=== PATIENT | male | born 1985 | race Caucasian/White ===

== ENCOUNTER 2019-01-06 14:18 | Observation (INO) | payer BC ==
[~2019-01-06] VITALS: Ht 172.7 cm; Wt 100.0 kg
[2019-01-06] MEDS ORDERED: LISINOPRIL10 MG PO (14:36)
[2019-01-06 15:00] VITALS: BP 134/69
--- NOTE | 2019-01-06 17:32 | NUR ---
PT STABLE, CALL LIGHT WITHIN REACH, MOTHER AT BEDSIDE, WILL CONTINUE TO MONITOR.
[2019-01-06 18:00] VITALS: BP 116/74
[2019-01-06 19:00] VITALS: BP 124/63
[2019-01-06 19:30] LABS: BASOPHILS 0.3 % (0-2); EOSINOPHILS 0.3 % (0-7); HEMATOCRIT 42.8 % (42.0-54.0); HEMOGLOBIN 14.6 g/dL (13.5-17.5); IMMATURE GRANULOCYTES 0.4 % (0-5); LYMPHOCYTES 14.7 % (15-50); MCH 29.1 pg (26.0-34.0); MCHC 34.1 g/dL (31.0-37.0); MCV 85.4 fL (80.0-100.0); MEAN PLATELET VOLUME 9.5 fL (7.4-10.4); MONOCYTES 8.7 % (2-11); NEUTROPHILS 75.6 % (40-80); RBC 5.01 10x6/uL (4.20-6.10); RDW 13.4 % (11.5-14.5); WBC 18.2 10x3/uL (4.8-10.8)
[2019-01-06 19:32] LABS: PLATELET COUNT 301 10x3/uL (130-400)
[2019-01-06 19:55] LABS: ALBUMIN 3.7 g/dL (3.4-5.0); ALKALINE PHOSPHATASE 78 U/L (46-116); ALT (SGPT) 35 U/L (10-68); BILIRUBIN - TOTAL 0.58 mg/dL (0.2-1.3); CALC OSMOLALITY 270 mosm/kg (275-300); CALCIUM 8.5 mg/dL (8.5-10.1); CARBON DIOXIDE 27.8 mmol/L (21.0-32.0); CHLORIDE - SERUM 100 mmol/L (98-107); CREATININE - SERUM 0.8 mg/dL (0.6-1.3); GLUCOSE 106 mg/dL (74-106); POTASSIUM - SERUM 4.2 mmol/L (3.5-5.1); PROTEIN - SERUM 7.8 g/dL (6.4-8.2); SODIUM 135 mmol/L (136-145); UREA NITROGEN 15 mg/dL (7-18); eGFR NON AFRICAN AMERICAN > 90 mL/min (90-120)
[2019-01-06 20:00] VITALS: BP 122/71
--- NOTE | 2019-01-06 20:40 | NUR ---
URINE SENT TO LAB
--- NOTE | 2019-01-06 21:00 | NUR ---
PT ARRIVED TO THE FLOOR. ALERT AND ORIENTED. NO SIGNS OF DISTRESS. BREAHING EVEN AND UNLABORED. WILL CONTINUE PLAN OF CARE.
[2019-01-06 22:41] VITALS: BP 136/77; Ht 172.7 cm; Wt 100.0 kg
[2019-01-07] VITALS: BP 136/77
[2019-01-07 04:00] VITALS: BP 121/80
[2019-01-07 07:52] LABS: CALC OSMOLALITY 272 mosm/kg (275-300); CALCIUM 8.3 mg/dL (8.5-10.1); CARBON DIOXIDE 26.9 mmol/L (21.0-32.0); CHLORIDE - SERUM 100 mmol/L (98-107); CREATININE - SERUM 0.8 mg/dL (0.6-1.3); GLUCOSE 96 mg/dL (74-106); SODIUM 136 mmol/L (136-145); UREA NITROGEN 16 mg/dL (7-18); eGFR NON AFRICAN AMERICAN > 90 mL/min (90-120)
[2019-01-07 08:28] LABS: BASOPHILS 0.2 % (0-2); EOSINOPHILS 0.5 % (0-7); HEMOGLOBIN 14.3 g/dL (13.5-17.5); IMMATURE GRANULOCYTES 0.5 % (0-5); LYMPHOCYTES 17.2 % (15-50); MCH 29.5 pg (26.0-34.0); MCV 86.6 fL (80.0-100.0); MEAN PLATELET VOLUME 9.7 fL (7.4-10.4); NEUTROPHILS 71.6 % (40-80); PLATELET COUNT 290 10x3/uL (130-400); RBC 4.85 10x6/uL (4.20-6.10); RDW 13.5 % (11.5-14.5); WBC 13.9 10x3/uL (4.8-10.8)
[2019-01-07 09:50] VITALS: BP 119/74
--- NOTE | 2019-01-07 10:00 | NUR ---
PT ALERT AND ORIENTED AND COMPLAINS OF BACK SPASMS AT TIMES. IVF INFUSING AT PRESCRIBED RATE WITH GUM MIXER MORPHINE. ZOFRAN FIVEN FOR NAUSEA.DR. DEXTER NOTFIED WITH NEW ORDERS NOTED. ENCOURAGED TO USE CALL LIGHT FOR ASSIST.
[2019-01-07 14:16] VITALS: BP 130/84
[2019-01-07 17:19] VITALS: BP 129/81
--- NOTE | 2019-01-07 20:00 | NUR ---
PT ALERT AND ORIENTED WHEN ENTERING ROOM. AND BABY AT BEDSIDE. PT HAS MORPHINE SEROLOGY TEACHER AT 10/13/09 INFUSING TO THE LEFT FOREARM. COMPLAINS THAT HE HAS BACK PAIN. ALSO STATES HE HASNT HAD A BOWEL MOVEMENT. SUPPLIED PATIENT WITH SPRITE AND PRUNE JUICE. CALL LIGHT IN REACH.
[2019-01-07 20:32] VITALS: BP 142/74
[2019-01-07 23:36] LABS: APPEARANCE CLEAR (CLEAR); BILIRUBIN NEGATIVE (NEGATIVE); COLOR YELLOW (YELLOW); GLUCOSE NEGATIVE (NEGATIVE); KETONE NEGATIVE (NEGATIVE); NITRITE NEGATIVE (NEGATIVE); PROTEIN NEGATIVE (NEGATIVE); SPECIFIC GRAVITY 1.015 (1.005-1.020); UROBILINOGEN NORMAL (NORMAL)
[2019-01-08 01:01] VITALS: BP 120/78
--- NOTE | 2019-01-08 01:24 | NUR ---
ASSISTED PT TO THE BATHROOM PER REQUEST. PT STATES THAT HE FEELS THE NEED TO HAVE A BM.
--- NOTE | 2019-01-08 04:06 | NUR ---
I have reviewed this patient and I concur with the Shift Assessment completed by the Licensed Practical Nurse today this shift.
[2019-01-08 07:18] LABS: BASOPHILS 0.1 % (0-2); EOSINOPHILS 0.1 % (0-7); HEMATOCRIT 41.7 % (42.0-54.0); HEMOGLOBIN 14.2 g/dL (13.5-17.5); IMMATURE GRANULOCYTES 0.5 % (0-5); LYMPHOCYTES 10.5 % (15-50); MCH 29.2 pg (26.0-34.0); MCHC 34.1 g/dL (31.0-37.0); MCV 85.8 fL (80.0-100.0); MONOCYTES 4.2 % (2-11); NEUTROPHILS 84.6 % (40-80); PLATELET COUNT 298 10x3/uL (130-400); RBC 4.86 10x6/uL (4.20-6.10); RDW 13.2 % (11.5-14.5)
[2019-01-08 07:42] LABS: ALBUMIN 3.5 g/dL (3.4-5.0); ALKALINE PHOSPHATASE 73 U/L (46-116); ALT (SGPT) 27 U/L (10-68); BILIRUBIN - TOTAL 0.73 mg/dL (0.2-1.3); CALC OSMOLALITY 266 mosm/kg (275-300); CALCIUM 8.9 mg/dL (8.5-10.1); CARBON DIOXIDE 24.8 mmol/L (21.0-32.0); CHLORIDE - SERUM 99 mmol/L (98-107); CREATININE - SERUM 0.6 mg/dL (0.6-1.3); GLUCOSE 126 mg/dL (74-106); POTASSIUM - SERUM 4.5 mmol/L (3.5-5.1); PROTEIN - SERUM 7.9 g/dL (6.4-8.2); SODIUM 133 mmol/L (136-145); eGFR NON AFRICAN AMERICAN > 90 mL/min (90-120)
[2019-01-08 07:49] LABS: UREA NITROGEN 11 mg/dL (7-18)
[2019-01-08 10:12] VITALS: BP 120/69
--- NOTE | 2019-01-08 11:03 | NUR ---
DECREASED PAIN NOTED TODAY WITH INCREASED ROM. IVF AND SCABBLER AT PRESECRIBED RATE WITH NO S/S OF INFECTION/INFILTRATION. INCREASED STABILITY WITH AMBULATION NOTED. DENIES ANY PAIN OR DISCOMFORT AT THIS TIME. ENCOURAED TO USE CALL LIGHT FOR ASSIST.
[2019-01-08 14:37] VITALS: BP 114/62
[2019-01-08 18:17] VITALS: BP 104/59
[2019-01-08 20:00] VITALS: BP 123/65
[2019-01-09] VITALS (7 sets, daily range): BP systolic 117–125; BP diastolic 64–82
--- NOTE | 2019-01-09 03:45 | NUR ---
I have reviewed this patient and I concur with the Shift Assessment completed by the Licensed Practical Nurse today this shift.
--- NOTE | 2019-01-09 04:00 | NUR ---
AMBULATES INDEPENDENTLY. DENIES PAIN AT THIS TIME. STATES DECADRON HAS DRASTICALLY IMPROVED PAIN LEVEL. WILL CONTINUE TO MONITOR.
[2019-01-09 08:02] LABS: BASOPHILS 0.1 % (0-2); EOSINOPHILS 0 % (0-7); HEMATOCRIT 39.6 % (42.0-54.0); HEMOGLOBIN 13.5 g/dL (13.5-17.5); IMMATURE GRANULOCYTES 0.6 % (0-5); LYMPHOCYTES 11.7 % (15-50); MCHC 34.1 g/dL (31.0-37.0); MCV 85.2 fL (80.0-100.0); MEAN PLATELET VOLUME 9.8 fL (7.4-10.4); NEUTROPHILS 81.6 % (40-80); PLATELET COUNT 311 10x3/uL (130-400); RBC 4.65 10x6/uL (4.20-6.10); RDW 13.1 % (11.5-14.5); WBC 18.6 10x3/uL (4.8-10.8)
[2019-01-09 08:20] LABS: ALBUMIN 3.3 g/dL (3.4-5.0); ALKALINE PHOSPHATASE 59 U/L (46-116); ALT (SGPT) 32 U/L (10-68); BILIRUBIN - TOTAL 0.41 mg/dL (0.2-1.3); CALC OSMOLALITY 281 mosm/kg (275-300); CALCIUM 8.6 mg/dL (8.5-10.1); CARBON DIOXIDE 24.9 mmol/L (21.0-32.0); CHLORIDE - SERUM 103 mmol/L (98-107); CREATININE - SERUM 0.7 mg/dL (0.6-1.3); GLUCOSE 122 mg/dL (74-106); POTASSIUM - SERUM 4.2 mmol/L (3.5-5.1); SODIUM 140 mmol/L (136-145); UREA NITROGEN 17 mg/dL (7-18); eGFR NON AFRICAN AMERICAN > 90 mL/min (90-120)
--- NOTE | 2019-01-09 10:05 | NUR ---
PT STATES FEELS SO MUCH BETTER AFTER BEING STARTED ON DECADRON, NO OTHER NEEDS VOICED, PT HAD MRI THIS MORNING, CONTINUE WITH PLAN OF CARE
--- NOTE | 2019-01-09 16:16 | NUR ---
I have reviewed this patient and I concur with the Shift Assessment completed by the Licensed Practical Nurse today this shift.
--- NOTE | 2019-01-09 18:44 | NUR ---
PT MOVED TO [facility] PER ORDERS FROM CUSTOMER ACCOUNT COORDINATOR, EXPLAINED TO PATIENT AND VERBALIZED UNDERSTANDING PT WOULD RATHER JUST BE DC BUT ADVISED PT I HAD NO ORDERS YET, TRANSFER PLAN OF CARE REPORT GIVEN TO [id number]
--- NOTE | 2019-01-09 19:10 | NUR ---
PM ROUNDS MADE, INFORMED PT THAT I WILL BE BACK SHORTLY TO DO ASSESSMENT, PT VERBALIZES UNDERSTANDING, DENIES NEEDS OR PAIN AT THIS TIME, PT ORIENTED TO ROOM, BED IN LOW POSITION, SIDE RAILS X 2, CALL LIGHT IN REACH
--- NOTE | 2019-01-09 20:03 | NUR ---
ASSESSMENT PER FLOW SHEET, VS OBTAINED PER OLIMPIA HELLER, RN, PT REPORTS FLATUS, BM YESTERDAY AND VOIDING WITH NO DIFFICULTY, PT DENIES PAIN AT THIS TIME, STATES " I FEEL SO MUCH BETTER TODAY THAN I DID ON WEDNESDAY", PT REQUESTED AND SERVED FRESH H20 AND CUP OF ICE FOR DR HORVATH, PT DENIES FURTHER NEEDS, BED IN LOW POSITION, SIDE RAILS X 2, CALL LIGHT IN REACH
--- NOTE | 2019-01-09 21:11 | NUR ---
PT AWAKE, WATCHING TV, ADM 2100 MED PER MD ORDERS, SEE EMAR, PT DENIES NEEDS OR PAIN AT THIS TIME
--- NOTE | 2019-01-09 22:35 | NUR ---
PT AWAKE, LOOKING AT CELL PHONE, SALINE LOCK FLUSHED WITH 10MLS OF NS WITH NO DIFFICULTY, ADM DECADRON DILUTED IN NS AND SIVP, SALINE LOCK FLUSHED WITH 10MLS OF NS WITH NO DIFFICULTY, PT TALKING ABOUT NEW BABY, SHOWED ME PICTURES, DENIES FURTHER NEEDS, BED IN LOW POSITION, SIDE RAILS X 2, CALL LIGHT IN REACH
--- NOTE | 2019-01-09 23:50 | NUR ---
PT AWAKE, VS OBTAINED DENIES NEEDS OR PAIN AT THIS TIME
--- NOTE | 2019-01-10 01:35 | NUR ---
PT RESTING WITH EYES CLOSED, RESP QUIET, NO DISTRESS NOTED, LEFT UNDISTURBED AT THIS TIME, BED IN LOW POSITION, SIDE RAILS X 2, CALL LIGHT IN REACH
[2019-01-10 04:21] VITALS: BP 114/67
--- NOTE | 2019-01-10 04:21 | NUR ---
MELISSA MUSA RN OBTAINED VS
--- NOTE | 2019-01-10 06:20 | NUR ---
PT RESTING WITH EYES CLOSED, AROUSES TO SOFT VERBAL STIMULATION, SALINE LOCK FLUSHED, ADM DECADRON DILUTED IN NS AND ADM SIVP, SALINE LOCK FLUSHED AFTER MED, ADM PROTONIX PO PER MD ORDERS, SEE EMAR, PT DENIES NEEDS OR PAIN AT THIS TIME
[2019-01-10 07:15] VITALS: BP 128/78
--- NOTE | 2019-01-10 07:15 | NUR ---
THIS RN AND Sendy JOHANSEN RN TO BEDSIDE FOR SHIFT ASSESSMENT. SEE FLOWSHEET. PT AA&O X 4. DENIES PAIN AT PRESENT. NO IV SITE PRESENT. V/S OBTAINED AND STABLE. DENIES PAIN OR NEEDS AT THIS TIME. PT DENIES NEEDS AT THIS TIME. BED LOW, SIDE RAILS UP X 2. CALL LIGHT AT PT'S SIDE.
[2019-01-10 07:22] LABS: BASOPHILS 0.1 % (0-2); EOSINOPHILS 0 % (0-7); HEMATOCRIT 41.3 % (42.0-54.0); HEMOGLOBIN 14.1 g/dL (13.5-17.5); IMMATURE GRANULOCYTES 0.9 % (0-5); LYMPHOCYTES 11.2 % (15-50); MCH 29.2 pg (26.0-34.0); MCHC 34.1 g/dL (31.0-37.0); MCV 85.5 fL (80.0-100.0); MEAN PLATELET VOLUME 9.4 fL (7.4-10.4); MONOCYTES 4.5 % (2-11); NEUTROPHILS 83.3 % (40-80); PLATELET COUNT 290 10x3/uL (130-400); RBC 4.83 10x6/uL (4.20-6.10); RDW 13.1 % (11.5-14.5); WBC 18.1 10x3/uL (4.8-10.8)
[2019-01-10 08:23] LABS: ALBUMIN 3.3 g/dL (3.4-5.0); ALKALINE PHOSPHATASE 64 U/L (46-116); ALT (SGPT) 35 U/L (10-68); BILIRUBIN - TOTAL 0.48 mg/dL (0.2-1.3); CALC OSMOLALITY 270 mosm/kg (275-300); CALCIUM 8.6 mg/dL (8.5-10.1); CARBON DIOXIDE 24.7 mmol/L (21.0-32.0); CHLORIDE - SERUM 101 mmol/L (98-107); CREATININE - SERUM 0.8 mg/dL (0.6-1.3); GLUCOSE 138 mg/dL (74-106); POTASSIUM - SERUM 3.8 mmol/L (3.5-5.1); PROTEIN - SERUM 7.3 g/dL (6.4-8.2); SODIUM 134 mmol/L (136-145); UREA NITROGEN 15 mg/dL (7-18); eGFR NON AFRICAN AMERICAN > 90 mL/min (90-120)
--- NOTE | 2019-01-10 08:30 | NUR ---
ROUNDS MADE. PT SITTING UP IN BED WATCHING TV. DENIES NEEDS.
--- NOTE | 2019-01-10 09:00 | NUR ---
CHASE AGOSTO TO ROOM AT THIS TIME TO SEE PATIENT. PLANS FOR D/C HOME TODAY.
[2019-01-10] MEDS ORDERED: ROBAXIN500 MG PO (09:35)
[2019-01-10] MEDS ORDERED: PREDNISONE10 MG PO (09:36)
[2019-01-10] MEDS ORDERED: ULTRAM50 MG PO (09:38)
--- NOTE | 2019-01-10 10:20 | NUR ---
DR. CALDERA HERE TO VISIT WITH PT. NURSE TO CALL AND SCHEDULE [address] CALDERA.
--- NOTE | 2019-01-10 11:00 | NUR ---
THIS RN TO BEDSIDE FOR DISCHARGE TEACHING. D/C INSTRUCTIONS TO INCLUDE LOWER BACK PAIN AND MEDICATIONS PRESCRIBED. ESCRIPTS SENT TO [facility] AND PT NOTIFIED SUCH. PT DENIES QUESTIONS AT THIS TIME. FOLLOW APPT SCHEDULED W/DR CALDERA ON01/24/19@1030.DISCHARGE PAPERS SIGNED AND COPIES PROVIDED TO PATIENT. PT TO DRESS AND AWAIT HIS WIFES ARRIVAL FOR DISCHARGE TRANSPORTATION HOME. DENIES NEEDS AT THIS TIME.
--- NOTE | 2019-01-10 11:45 | NUR ---
PT'S HAS ARRIVED TO TRANSPORT PATIENT HOME. SALINE LOCK DISCONTINUED INTACT. SITE WNL AND BANDAID PLACED OVER SITE.
--- NOTE | 2019-01-10 11:54 | NUR ---
PT DISCHARGED HOME. AMBULATORY OFF UNIT AT THIS TIME WITH HIS .
== END 2019-01-10 11:54 | disposition home or self-care (01) ==
LOC: D.ER 14:18 → D.MS 18:56 → D.EDHOLD 18:56 → OBSVTIME 18:56 → D.MS 19:38 → D.WS 01-09 18:30
PROVIDERS: Family Medicine; ADMIT Family Medicine; ATTEND Family Medicine
DX: M54.5 Low back pain (principal); M43.9 Deforming dorsopathy, unspecified; I10 Essential (primary) hypertension; E66.9 Obesity, unspecified; M48.061 Spinal stenosis, lumbar region without neurogenic claudication